=== PATIENT | male | born 1945 | race African-American/Black ===

== ENCOUNTER 2019-06-06 06:55 | Inpatient (IN) ==
[2019-06-06] MEDS ORDERED: DILTIAZEM 50 MG/10 ML VIAL IV STA (07:12)
[2019-06-06] MEDS ORDERED: FUROSEMIDE 40 MG/4 ML VIAL IV STA (07:12)
[2019-06-06] MEDS ORDERED: FUROSEMIDE 100 MG/10 ML VIAL ONE (07:12)
[2019-06-06] MEDS ORDERED: DILTIAZEM 25 MG/5 ML VIAL IV ONE (07:13)
[2019-06-06] MEDS ORDERED: MORPHINE 4 MG/1 ML VIAL ONE (07:17)
[2019-06-06 07:26] LABS: Basophils # 0.1 10*3/uL (0.0-0.2); Basophils % 0.7 % (0.0-0.8); Eosinophils # 0.2 10*3/uL (0.0-0.87); Eosinophils % 1.9 % (0.00-10.9); Hematocrit 52.6 VOL% (42.0-52.0); Hemoglobin 17.2 GM/DL (14.0-18.0); Immature Granulocytes % 0.3 %; Immature Granulocytes Absolute 0.04 #; Lymphocytes # 3.2 10*3/uL (1.4-4.0); Lymphocytes % 25.9 % (21.2-54.2); Mean Corpuscular HGB Conc 32.7 GM/DL (32-36); Mean Corpuscular Volume 97.4 FL (87-102); Mean Platelet Volume 11.1 FL (9.6-12.0); Monocytes % 5.1 % (1.7-12.7); Neutrophils % 66.1 % (38.7-73.9); Platelet Count 167 T/CUMM (130-400); Red Cell Distribution Width 14.6 % (9.3-17.3); White Blood Count 12.5 T/CUMM (4-12)
[2019-06-06] MEDS ORDERED: ALBUTEROL 2.5 MG/3 ML NEB RESP TX SCH (07:30)
[2019-06-06] MEDS ORDERED: dilTIAZem Drip 125 MG/125 ML PREMIX IV SCH (07:30)
[2019-06-06 07:34] LABS: ABG Base Excess -4.5 MMOL/L (-2.5-2.5); ABG HCO3 22.1 MMOL/L (20-26); ABG Oxygen Saturation 97.1 % (95-100); ABG PCO2 46.1 MM HG (35-48); ABG PH 7.299 (7.35-7.45); ABG PO2 108.9 MM HG (80-95); ABG TCO2 23.5 MMOL/L (23-27)
[2019-06-06] MEDS ORDERED: MORPHINE 4 MG/1 ML VIAL IV STA (07:48)
[2019-06-06 07:55] LABS: Albumin 3.9 G/DL (3.4-5.0); Calcium 9.2 MG/DL (8.5-10.1); Osmolality,Calculated 283.3 MOS/KG (273-304); Total Protein 7.6 G/DL (6.4-8.3)
[2019-06-06 08:02] LABS: Apearance,Urine Cloudy (Clear); Bilirubin,Urine Negative (Negative); Blood, Urine Large mg/dL (Negative); Glucose,Urine (UA) Negative (Negative); Ketones,Urine Negative (Negative); Nitrite,Urine Negative (Negative); Protein,Urine 2+ MG/DL; Urine Color Red (Yellow); Urine Specific Gravity 1.015 (1.001-1.035); Urine Urobilinogen < 0.2 EU/DL (0.2-1.0)
[2019-06-06 08:07] LABS: Bacteria,Urine Rare /HPF (Few); RBC,Urine TNTC /HPF (0-4); Squamous Epithelial Cell,Urine Few /HPF (0-10)
[2019-06-06] MEDS ORDERED: guaiFENesin/DM ER 600-30 MG TABLET PO PRN (09:10)
[2019-06-06] MEDS ORDERED: ACETAMINOPHEN 325 MG TABLET PO PRN (09:10)
[2019-06-06] MEDS ORDERED: NICOTINE 21 MG/24 HR PATCH TRANSDERM PRN (09:10)
[2019-06-06] MEDS ORDERED: BISACODYL 5 MG TABLET PO PRN (09:10)
[2019-06-06] MEDS ORDERED: ONDANSETRON 4 MG/2 ML VIAL IV PRN (09:10)
[2019-06-06 09:49] LABS: Risk Ratio 3.18; Thyroid Stimulating Hormone 1.29 uIU/ml (0.358-3.74); VLDL CHOLESTEROL 18.4 MG/DL
[2019-06-06] MEDS: LEVOFLOXACIN INJ 750 MG in PREMIX 1 EACH IV SCH (11:11)
[2019-06-06] MEDS: METOPROLOL TARTRATE 50 MG TABLET PO SCH ×2 (11:11→20:07)
[2019-06-06] MEDS: LISINOPRIL 20 MG TABLET PO SCH (15:18)
[2019-06-06] MEDS: FUROSEMIDE 40 MG/4 ML VIAL IV SCH (15:18)
[2019-06-06] MEDS ORDERED: CYCLOBENZAPRINE 10 MG TABLET PO ONE (19:45)
[2019-06-06] MEDS: APIXABAN 5 MG TABLET PO SCH (20:07)
[2019-06-07 05:25] LABS: Basophils % 0.3 % (0.0-0.8); Eosinophils # 0.1 10*3/uL (0.0-0.87); Eosinophils % 0.6 % (0.00-10.9); Hematocrit 45.9 VOL% (42.0-52.0); Hemoglobin 15.5 GM/DL (14.0-18.0); Immature Granulocytes % 0.4 %; Immature Granulocytes Absolute 0.05 #; Lymphocytes # 1.3 10*3/uL (1.4-4.0); Lymphocytes % 10.7 % (21.2-54.2); Mean Corpuscular HGB Conc 33.8 GM/DL (32-36); Mean Corpuscular Volume 93.9 FL (87-102); Mean Platelet Volume 11.2 FL (9.6-12.0); Monocytes % 8.1 % (1.7-12.7); Neutrophils % 79.9 % (38.7-73.9); Platelet Count 146 T/CUMM (130-400); Red Blood Count 4.89 MC/CUMM (3.8-5.5); Red Cell Distribution Width 14.2 % (9.3-17.3); White Blood Count 11.6 T/CUMM (4-12)
[2019-06-07 06:14] LABS: Calcium 8.9 MG/DL (8.5-10.1); Osmolality,Calculated 302.7 MOS/KG (273-304)
[2019-06-07] MEDS: APIXABAN 5 MG TABLET PO SCH (08:59)
[2019-06-07] MEDS: FUROSEMIDE 40 MG/4 ML VIAL IV SCH (08:59)
[2019-06-07] MEDS: LISINOPRIL 20 MG TABLET PO SCH (08:59)
[2019-06-07] MEDS: METOPROLOL TARTRATE 50 MG TABLET PO SCH (08:59)
[2019-06-07] MEDS ORDERED: ATORVASTATIN 80 MG TABLET PO SCH (09:00)
[2019-06-07] MEDS ORDERED: PANTOPRAZOLE 40 MG TABLET PO SCH (09:00)
[2019-06-07] MEDS ORDERED: ATORVASTATIN 40 MG TABLET PO SCH (09:00)
[2019-06-07] MEDS: LEVOFLOXACIN INJ 750 MG in PREMIX 1 EACH IV SCH (11:00)
[2019-06-07] MEDS ORDERED: DEXTROSE 5% 1,000 ML IV SCH (11:30)
[2019-06-07 12:14] VITALS: BP 143/76
== END 2019-06-07 14:15 | disposition home or self-care (01) | DRG 871 ==
LOC: N.ED 06:55 → N.EDINP 09:10 → N.TELEN 14:17
PROVIDERS: ADMIT Internal Medicine; ATTEND Internal Medicine

== ENCOUNTER 2020-11-19 07:02 | Inpatient (IN) ==
[2020-11-13 12:03] LABS: Basophils # 0.1 10*3/uL (0.0-0.2); Basophils % 0.7 % (0.0-0.8); Eosinophils # 0.5 10*3/uL (0.0-0.87); Eosinophils % 6.6 % (0.00-10.9); Hematocrit 47.1 VOL% (42.0-52.0); Hemoglobin 15.4 GM/DL (14.0-18.0); Immature Granulocytes % 0.3 %; Immature Granulocytes Absolute 0.02 #; Lymphocytes # 1.5 10*3/uL (1.4-4.0); Lymphocytes % 21.5 % (21.2-54.2); Mean Corpuscular HGB Conc 32.7 GM/DL (32-36); Mean Corpuscular Volume 99.2 FL (87-102); Mean Platelet Volume 11.2 FL (9.6-12.0); Monocytes % 9.7 % (1.7-12.7); Neutrophils % 61.2 % (38.7-73.9); Platelet Count 155 T/CUMM (130-400); Red Blood Count 4.75 MC/CUMM (3.8-5.5); Red Cell Distribution Width 15.1 % (9.3-17.3)
[2020-11-13 12:14] LABS: PT Patient Result 11.1 SECS (10.5-12.0); Partial Thromboplastin Time 30.2 SECS (23.9-33.8)
[2020-11-13 12:35] LABS: Albumin 3.7 G/DL (3.4-5.0); Bilirubin,Total 0.6 MG/DL (0.2-1.0); Calcium 8.8 MG/DL (8.5-10.1); Total Protein 7.1 G/DL (6.4-8.2)
[~2020-11-19 07:02] MED LIST: ACETAMINOPHEN 500 MG TABLET PO ONE; DIAZEPAM 5 MG TABLET PO ONE; FAMOTIDINE 20 MG TABLET PO ONE
[2020-11-19] MEDS ORDERED: LACTATED RINGERS 1,000 ML IV SCH (07:30)
[2020-11-19] MEDS ORDERED: fentaNYL 100 MCG/2 ML VIAL ONE ×2 (08:14→10:28)
[2020-11-19] MEDS ORDERED: HEPARIN 5,000 UNIT/1 ML VIAL ONE ×2 (08:40→08:42)
[2020-11-19] MEDS ORDERED: ROCURONIUM 50 MG/5 ML VIAL IV ONE (08:54)
[2020-11-19] MEDS ORDERED: LIDOCAINE 2% 5 ML VIAL ONE (08:54)
[2020-11-19] MEDS ORDERED: ONDANSETRON 4 MG/2 ML VIAL ONE (08:54)
[2020-11-19] MEDS ORDERED: HEPARIN 10,000 UNIT/10 ML VIAL ONE (08:54)
[2020-11-19] MEDS ORDERED: KETOROLAC 30 MG/1 ML VIAL ONE (08:54)
[2020-11-19] MEDS ORDERED: ETOMIDATE 40 MG/20 ML VIAL IV ONE (08:54)
[2020-11-19] MEDS ORDERED: propofoL 200 MG/20 ML VIAL IV ONE (08:54)
[2020-11-19] MEDS ORDERED: PHENYLEPHRINE 1 MG/10 ML SYRINGE IV ONE (09:31)
[2020-11-19] MEDS ORDERED: TISSUE ADHESIVE 1 EACH APPLICATOR TOP ONE ×2 (10:06→10:07)
[2020-11-19] MEDS ORDERED: GLYCOPYRROLATE 0.4 MG/2 ML VIAL ONE (10:10)
[2020-11-19] MEDS ORDERED: NEOSTIGMINE 10 MG/10 ML VIAL ONE (10:10)
[2020-11-19] MEDS ORDERED: PROTAMINE SULFATE 50 MG/5 ML VIAL IV ONE (10:18)
[2020-11-19] MEDS ORDERED: HYDROmorphone 2 MG/1 ML VIAL IV PRN ×2 (10:38→11:13)
[2020-11-19] MEDS ORDERED: ONDANSETRON 4 MG/2 ML VIAL IV PRN ×2 (10:38→11:13)
[2020-11-19] MEDS ORDERED: NITROGLYCERIN SL 0.4 MG TABLET SL PRN (10:42)
[2020-11-19] MEDS ORDERED: SEVOFLURANE 1 UNIT/15 MINUTE INH ONE (10:45)
[2020-11-19] MEDS ORDERED: ATORVASTATIN 40 MG TABLET PO SCH (21:00)
[2020-11-19] MEDS: LACTATED RINGERS 1,000 ML IV SCH ×2 (21:48→21:59)
[2020-11-19] MEDS: SACUBITRIL/VALSARTAN 49-51 MG TABLET PO SCH (21:59)
[2020-11-19] MEDS: PANTOPRAZOLE 40 MG TABLET PO SCH (21:59)
[2020-11-19] MEDS: clonazePAM 0.5 MG TABLET PO SCH (21:59)
[2020-11-19] MEDS: METOPROLOL TARTRATE 100 MG TABLET PO SCH (21:59)
[2020-11-20 06:07] LABS: Hematocrit 40.4 VOL% (42.0-52.0); Hemoglobin 13.2 GM/DL (14.0-18.0)
[2020-11-20 06:44] LABS: Calcium 8.4 MG/DL (8.5-10.1); Osmolality,Calculated 283.1 MOS/KG (273-304)
[2020-11-20] MEDS: LACTATED RINGERS 1,000 ML IV SCH ×2 (07:37→11:03)
[2020-11-20 08:20] VITALS: BP 180/69
[2020-11-20] MEDS: METOPROLOL TARTRATE 100 MG TABLET PO SCH (08:52)
[2020-11-20] MEDS: PANTOPRAZOLE 40 MG TABLET PO SCH (08:52)
[2020-11-20] MEDS: SACUBITRIL/VALSARTAN 49-51 MG TABLET PO SCH (08:53)
[2020-11-20] MEDS: clonazePAM 0.5 MG TABLET PO SCH (08:53)
[2020-11-20] MEDS ORDERED: CYANOCOBALAMIN 500 MCG TABLET PO SCH (09:00)
[2020-11-20] MEDS ORDERED: ASPIRIN CHEW 81 MG TABLET PO SCH (09:00)
[2020-11-20] MEDS ORDERED: FUROSEMIDE 20 MG TABLET PO SCH (09:00)
[2020-11-20] MEDS ORDERED: CLOPIDOGREL 75 MG TABLET PO SCH ×2 (09:00)
== END 2020-11-20 11:25 | disposition home or self-care (01) | DRG 254 ==
LOC: N.OR 07:02 → N.SDSINP 07:04 → EDSTATUS 09:15 → N.SDSINP 10:38 → N.4E 13:13
PROVIDERS: ADMIT Surgery; ATTEND Surgery

== ENCOUNTER 2020-12-04 07:01 | Inpatient (IN) ==
[2020-12-04] MEDS ORDERED: ONDANSETRON 4 MG/2 ML VIAL IV STA (08:24)
[2020-12-04] MEDS ORDERED: MORPHINE 4 MG/1 ML VIAL IV STA (08:24)
[2020-12-04 08:26] LABS: Basophils % 0.2 % (0.0-0.8); Eosinophils # 0.1 10*3/uL (0.0-0.87); Eosinophils % 0.6 % (0.00-10.9); Hematocrit 38.6 VOL% (42.0-52.0); Hemoglobin 12.5 GM/DL (14.0-18.0); Immature Granulocytes % 0.6 %; Immature Granulocytes Absolute 0.06 #; Lymphocytes # 1.2 10*3/uL (1.4-4.0); Mean Corpuscular HGB Conc 32.4 GM/DL (32-36); Mean Corpuscular Volume 98.7 FL (87-102); Mean Platelet Volume 10.8 FL (9.6-12.0); Neutrophils % 80.6 % (38.7-73.9); Platelet Count 203 T/CUMM (130-400); Red Blood Count 3.91 MC/CUMM (3.8-5.5); Red Cell Distribution Width 14.6 % (9.3-17.3); White Blood Count 10.7 T/CUMM (4-12)
[2020-12-04] MEDS ORDERED: LIDOCAINE 2% TOP JELLY 20 ML VIAL INTRAURETH ONE (08:35)
[2020-12-04 08:38] LABS: Calcium 9.1 MG/DL (8.5-10.1); Osmolality,Calculated 284.4 MOS/KG (273-304); Potassium 4.5 MMOL/L (3.5-5.1)
[2020-12-04] MEDS ORDERED: HYDROmorphone 2 MG/1 ML VIAL ONE (08:43)
[2020-12-04] MEDS ORDERED: HYDROmorphone 2 MG/1 ML VIAL IV STA (08:45)
[2020-12-04] MEDS ORDERED: LIDOCAINE 2% TOP JELLY 5 ML TUBE TOP ONE (08:50)
[2020-12-04] MEDS ORDERED: GLUCAGON 1 MG VIAL IM PRN (10:19)
[2020-12-04] MEDS ORDERED: DEXTROSE 50% 25 GM/50 ML VIAL IV PRN (10:19)
[2020-12-04] MEDS ORDERED: DOCUSATE SODIUM 100 MG CAPSULE PO PRN (10:19)
[2020-12-04] MEDS ORDERED: ALBUTEROL/IPRATROPIUM 3 ML NEB RESP TX PRN (10:19)
[2020-12-04] MEDS ORDERED: ONDANSETRON 4 MG/2 ML VIAL IV PRN (10:19)
[2020-12-04] MEDS: SODIUM CHLORIDE 0.9% 1,000 ML IV SCH (11:24)
[2020-12-04] MEDS ORDERED: NITROGLYCERIN SL 0.4 MG TABLET SL PRN (12:54)
[2020-12-04] MEDS: MORPHINE 4 MG/1 ML VIAL IV PRN ×2 (13:34→17:27)
[2020-12-04] MEDS: hydrALAZINE 20 MG/1 ML VIAL IV PRN ×2 (13:34→20:41)
[2020-12-04 15:24] LABS: Bacteria,Urine Many /HPF (Few); Bilirubin,Urine Negative (Negative); Blood, Urine Moderate mg/dL (Negative); Glucose,Urine (UA) 50 mg/dL (Negative); Ketones,Urine Negative (Negative); Nitrite,Urine Negative (Negative); Protein,Urine >=500 MG/DL; RBC,Urine 623 /HPF (0-4); Urine Appearance Slightly Hazy (Clear); Urine Color Red (Yellow); Urine Specific Gravity 1.004 (1.001-1.035); Urine Urobilinogen < 2.0 EU/DL (0.2-1.0)
[2020-12-04] MEDS ORDERED: SACUBITRIL/VALSARTAN 49-51 MG TABLET PO SCH (21:00)
[2020-12-05] MEDS: SODIUM CHLORIDE 0.9% 1,000 ML IV SCH ×2 (05:15→20:30)
[2020-12-05 06:15] LABS: Basophils % 0.3 % (0.0-0.8); Eosinophils % 0.2 % (0.00-10.9); Hematocrit 30.7 VOL% (42.0-52.0); Immature Granulocytes % 0.6 %; Immature Granulocytes Absolute 0.09 #; Lymphocytes % 6.5 % (21.2-54.2); Mean Corpuscular HGB Conc 33.2 GM/DL (32-36); Mean Corpuscular Volume 98.1 FL (87-102); Mean Platelet Volume 11.7 FL (9.6-12.0); Monocytes % 8.7 % (1.7-12.7); Neutrophils % 83.7 % (38.7-73.9); Platelet Count 181 T/CUMM (130-400); Red Blood Count 3.13 MC/CUMM (3.8-5.5); Red Cell Distribution Width 14.6 % (9.3-17.3)
[2020-12-05 06:23] LABS: Hemoglobin 10.2 GM/DL (14.0-18.0); White Blood Count 14.8 T/CUMM (4-12)
[2020-12-05 06:24] LABS: Calcium 8.7 MG/DL (8.5-10.1); Osmolality,Calculated 288.3 MOS/KG (273-304); Potassium 4.1 MMOL/L (3.5-5.1); Risk Ratio 2.83
[2020-12-05 08:41] LABS: Alanine Aminotransferase 13 U/L (16-61); Aspartate Amino Transferase 36 U/L (0-37)
[2020-12-05] MEDS ORDERED: CYANOCOBALAMIN 500 MCG TABLET PO SCH (09:00)
[2020-12-05] MEDS: cefTRIAXone 1,000 MG in SODIUM CHLORIDE 0.9% 100 ML IV SCH (09:55)
[2020-12-05] MEDS: MORPHINE 4 MG/1 ML VIAL IV PRN ×2 (09:55→17:11)
[2020-12-05 13:08] LABS: Bacteria,Urine Occasional /HPF (Few); RBC,Urine 32755 /HPF (0-4); Sperm,Urine Occasional /HPF (Negative); Squamous Epithelial Cell,Urine Few /HPF (0-10)
[2020-12-05 13:16] LABS: Protein,Urine >500 MG/DL; Urine Appearance Cloudy (Clear); Urine Color Red (Yellow)
[2020-12-05 13:17] LABS: Bilirubin,Urine Negative (Negative); Glucose,Urine (UA) Negative (Negative); Ketones,Urine Negative (Negative); Nitrite,Urine Negative (Negative)
[2020-12-05 13:18] LABS: Blood, Urine Large mg/dL (Negative); Urine Urobilinogen < 2.0 EU/DL (0.2-1.0)
[2020-12-05 14:37] LABS: Hematocrit 30.6 VOL% (42.0-52.0)
[2020-12-05] MEDS: ATORVASTATIN 40 MG TABLET PO SCH (20:49)
[2020-12-05] MEDS: METOPROLOL TARTRATE 100 MG TABLET PO SCH (20:49)
[2020-12-06] MEDS: MORPHINE 4 MG/1 ML VIAL IV PRN ×2 (03:15→15:38)
[2020-12-06 03:48] LABS: Basophils % 0.3 % (0.0-0.8); Eosinophils # 0.3 10*3/uL (0.0-0.87); Eosinophils % 1.9 % (0.00-10.9); Hemoglobin 9.7 GM/DL (14.0-18.0); Immature Granulocytes % 0.6 %; Immature Granulocytes Absolute 0.09 #; Lymphocytes # 0.9 10*3/uL (1.4-4.0); Lymphocytes % 6.8 % (21.2-54.2); Mean Corpuscular HGB Conc 33.4 GM/DL (32-36); Mean Corpuscular Volume 97.3 FL (87-102); Mean Platelet Volume 11.3 FL (9.6-12.0); Monocytes % 6.8 % (1.7-12.7); Neutrophils % 83.6 % (38.7-73.9); Platelet Count 175 T/CUMM (130-400); Red Blood Count 2.98 MC/CUMM (3.8-5.5); Red Cell Distribution Width 14.6 % (9.3-17.3); White Blood Count 13.9 T/CUMM (4-12)
[2020-12-06 04:09] LABS: Calcium 8.5 MG/DL (8.5-10.1); Osmolality,Calculated 285.3 MOS/KG (273-304); Potassium 4.3 MMOL/L (3.5-5.1)
[2020-12-06] MEDS ORDERED: LIDOCAINE 2% 5 ML VIAL ONE (07:00)
[2020-12-06] MEDS ORDERED: fentaNYL 100 MCG/2 ML VIAL ONE (07:00)
[2020-12-06] MEDS ORDERED: propofoL 200 MG/20 ML VIAL IV ONE (07:00)
[2020-12-06] MEDS ORDERED: SEVOFLURANE 1 UNIT/15 MINUTE INH ONE ×4 (07:00→08:57)
[2020-12-06] MEDS: SODIUM CHLORIDE 0.9% 1,000 ML IV SCH (07:07)
[2020-12-06] MEDS ORDERED: SUCCINYLCHOLINE 200 MG/10 ML VIAL ONE (08:22)
[2020-12-06] MEDS ORDERED: cefTRIAXone 1,000 MG VIAL ONE (08:54)
[2020-12-06] MEDS ORDERED: SODIUM CHLORIDE 0.9% 1,000 ML IV ONE (09:03)
[2020-12-06] MEDS ORDERED: ONDANSETRON 4 MG/2 ML VIAL ONE ×2 (09:05→09:39)
[2020-12-06] MEDS: cefTRIAXone 1,000 MG in SODIUM CHLORIDE 0.9% 100 ML IV SCH (11:14)
[2020-12-06] MEDS: ASPIRIN CHEW 81 MG TABLET PO SCH (11:14)
[2020-12-06] MEDS: METOPROLOL TARTRATE 100 MG TABLET PO SCH ×2 (11:15→21:17)
[2020-12-06] MEDS: FLUTICASONE 50 MCG NASAL SPRAY 16 GM BOTTLE BOTH NARES SCH (11:15)
[2020-12-06] MEDS: amLODIPine 5 MG TABLET PO SCH (11:16)
[2020-12-06] MEDS: DOCUSATE SODIUM 100 MG CAPSULE PO SCH ×2 (14:03→21:17)
[2020-12-06] MEDS: POLYETHYLENE GLYCOL POWDER 17 GM PACK PO SCH ×2 (14:04→21:17)
[2020-12-06] MEDS ORDERED: ALUMINUM/MAGNES/SIMETH MAX STR 30 ML UDCUP PO PRN (16:50)
[2020-12-06] MEDS: ATORVASTATIN 40 MG TABLET PO SCH (21:17)
[2020-12-06] MEDS: SENNA 8.6 MG TABLET PO SCH (21:17)
[2020-12-06] MEDS: OXYBUTYNIN 5 MG TABLET PO SCH (21:17)
[2020-12-07] MEDS: SODIUM CHLORIDE 0.9% 1,000 ML IV SCH ×2 (02:17→15:50)
[2020-12-07 04:52] LABS: Basophils % 0.3 % (0.0-0.8); Eosinophils # 0.4 10*3/uL (0.0-0.87); Eosinophils % 3.8 % (0.00-10.9); Hematocrit 27.6 VOL% (42.0-52.0); Hemoglobin 9.2 GM/DL (14.0-18.0); Immature Granulocytes % 0.4 %; Immature Granulocytes Absolute 0.04 #; Lymphocytes # 0.9 10*3/uL (1.4-4.0); Lymphocytes % 9.6 % (21.2-54.2); Mean Corpuscular HGB Conc 33.3 GM/DL (32-36); Mean Corpuscular Volume 97.9 FL (87-102); Mean Platelet Volume 11.6 FL (9.6-12.0); Monocytes % 8.3 % (1.7-12.7); Neutrophils % 77.6 % (38.7-73.9); Platelet Count 193 T/CUMM (130-400); Red Blood Count 2.82 MC/CUMM (3.8-5.5); Red Cell Distribution Width 14.6 % (9.3-17.3); White Blood Count 9.7 T/CUMM (4-12)
[2020-12-07 05:14] LABS: Calcium 8.3 MG/DL (8.5-10.1); Osmolality,Calculated 287.1 MOS/KG (273-304); Potassium 4.3 MMOL/L (3.5-5.1)
[2020-12-07] MEDS: ASPIRIN CHEW 81 MG TABLET PO SCH (09:41)
[2020-12-07] MEDS: LINACLOTIDE 145 MCG CAPSULE PO SCH (09:41)
[2020-12-07] MEDS: OXYBUTYNIN 5 MG TABLET PO SCH ×3 (09:42→21:47)
[2020-12-07] MEDS: METOPROLOL TARTRATE 100 MG TABLET PO SCH ×2 (09:42→21:47)
[2020-12-07] MEDS: amLODIPine 5 MG TABLET PO SCH (09:42)
[2020-12-07] MEDS: DOCUSATE SODIUM 100 MG CAPSULE PO SCH ×2 (09:42→21:47)
[2020-12-07] MEDS: FLUTICASONE 50 MCG NASAL SPRAY 16 GM BOTTLE BOTH NARES SCH (09:43)
[2020-12-07] MEDS: POLYETHYLENE GLYCOL POWDER 17 GM PACK PO SCH ×2 (09:43→21:47)
[2020-12-07] MEDS: DUTASTERIDE 0.5 MG CAPSULE PO SCH (09:44)
[2020-12-07] MEDS: cefTRIAXone 1,000 MG in SODIUM CHLORIDE 0.9% 100 ML IV SCH (09:51)
[2020-12-07] MEDS ORDERED: traMADol 50 MG TABLET PO PRN (11:18)
[2020-12-07] MEDS: TAMSULOSIN 0.4 MG CAPSULE PO SCH ×2 (11:55→21:47)
[2020-12-07] MEDS: SENNA 8.6 MG TABLET PO SCH (21:47)
[2020-12-07] MEDS: ATORVASTATIN 40 MG TABLET PO SCH (21:47)
[2020-12-08] MEDS ORDERED: HALOPERIDOL 5 MG/ML AMP IM ONE (01:27)
[2020-12-08 07:52] LABS: Basophils % 0.3 % (0.0-0.8); Eosinophils # 0.1 10*3/uL (0.0-0.87); Eosinophils % 1.5 % (0.00-10.9); Hematocrit 27.2 VOL% (42.0-52.0); Hemoglobin 8.8 GM/DL (14.0-18.0); Immature Granulocytes % 0.8 %; Immature Granulocytes Absolute 0.07 #; Lymphocytes # 0.7 10*3/uL (1.4-4.0); Lymphocytes % 7.8 % (21.2-54.2); Mean Corpuscular HGB Conc 32.4 GM/DL (32-36); Mean Corpuscular Volume 98.6 FL (87-102); Mean Platelet Volume 11.3 FL (9.6-12.0); Monocytes % 9.6 % (1.7-12.7); Platelet Count 214 T/CUMM (130-400); Red Blood Count 2.76 MC/CUMM (3.8-5.5); Red Cell Distribution Width 14.5 % (9.3-17.3); White Blood Count 9.2 T/CUMM (4-12)
[2020-12-08 08:07] LABS: Calcium 8.5 MG/DL (8.5-10.1)
[2020-12-08] MEDS: cefTRIAXone 1,000 MG in SODIUM CHLORIDE 0.9% 100 ML IV SCH (09:10)
[2020-12-08] MEDS: DUTASTERIDE 0.5 MG CAPSULE PO SCH (09:12)
[2020-12-08] MEDS: ASPIRIN CHEW 81 MG TABLET PO SCH (09:12)
[2020-12-08] MEDS: amLODIPine 5 MG TABLET PO SCH (09:13)
[2020-12-08] MEDS: TAMSULOSIN 0.4 MG CAPSULE PO SCH ×2 (09:13→20:39)
[2020-12-08] MEDS: METOPROLOL TARTRATE 100 MG TABLET PO SCH ×2 (09:13→20:39)
[2020-12-08] MEDS: OXYBUTYNIN 5 MG TABLET PO SCH (09:13)
[2020-12-08] MEDS: LINACLOTIDE 145 MCG CAPSULE PO SCH (09:31)
[2020-12-08] MEDS: POLYETHYLENE GLYCOL POWDER 17 GM PACK PO SCH ×2 (09:31→20:40)
[2020-12-08] MEDS: DOCUSATE SODIUM 100 MG CAPSULE PO SCH ×2 (09:31→20:39)
[2020-12-08] MEDS: FLUTICASONE 50 MCG NASAL SPRAY 16 GM BOTTLE BOTH NARES SCH (09:31)
[2020-12-08] MEDS: OLANZapine 5 MG TABLET PO PRN ×2 (14:01→20:38)
[2020-12-08] MEDS: ATORVASTATIN 40 MG TABLET PO SCH (20:39)
[2020-12-08] MEDS: SENNA 8.6 MG TABLET PO SCH (20:40)
[2020-12-08] MEDS ORDERED: ACETAMINOPHEN 325 MG TABLET PO PRN (22:55)
[2020-12-08] MEDS ORDERED: LORazepam 2 MG/1 ML VIAL IV ONE (22:56)
[2020-12-08] MEDS ORDERED: LORazepam 2 MG/1 ML VIAL IM ONE (23:43)
[2020-12-09 00:11] LABS: Basophils % 0.3 % (0.0-0.8); Eosinophils # 0.1 10*3/uL (0.0-0.87); Eosinophils % 0.7 % (0.00-10.9); Hematocrit 33.8 VOL% (42.0-52.0); Hemoglobin 10.7 GM/DL (14.0-18.0); Immature Granulocytes % 0.6 %; Immature Granulocytes Absolute 0.07 #; Lymphocytes # 0.8 10*3/uL (1.4-4.0); Lymphocytes % 6.9 % (21.2-54.2); Mean Corpuscular HGB Conc 31.7 GM/DL (32-36); Mean Corpuscular Volume 102.4 FL (87-102); Mean Platelet Volume 10.9 FL (9.6-12.0); Monocytes % 9.6 % (1.7-12.7); NRBC # 0.02 10*3/uL; Neutrophils % 81.9 % (38.7-73.9); Platelet Count 183 T/CUMM (130-400); Red Cell Distribution Width 14.5 % (9.3-17.3); White Blood Count 10.9 T/CUMM (4-12)
[2020-12-09 00:46] LABS: Albumin 2.4 G/DL (3.4-5.0); Bilirubin,Total 0.7 MG/DL (0.2-1.0); Calcium 8.7 MG/DL (8.5-10.1); Osmolality,Calculated 282.5 MOS/KG (273-304); Potassium 4.3 MMOL/L (3.5-5.1); Total Protein 6.5 G/DL (6.4-8.2)
[2020-12-09 01:18] LABS: ABG Base Excess -2.9 MMOL/L (-2.5-2.5); ABG HCO3 21.9 MMOL/L (20-26); ABG Oxygen Saturation 96.3 % (95-100); ABG PCO2 28.7 MM HG (35-48); ABG PH 7.454 (7.35-7.45); ABG PO2 82.6 MM HG (80-95); ABG TCO2 18.5 MMOL/L (23-27)
[2020-12-09] MEDS ORDERED: LORazepam 2 MG/1 ML VIAL IM ONE (01:28)
[2020-12-09 01:35] LABS: Bacteria,Urine Occasional /HPF (Few); Bilirubin,Urine Negative (Negative); Blood, Urine Large mg/dL (Negative); Glucose,Urine (UA) 50 mg/dL (Negative); Hyaline Casts,Urine 3 /LPF (0-3); Ketones,Urine Negative (Negative); Mucus,Urine Few /LPF (Occasional); Nitrite,Urine Negative (Negative); Protein,Urine >=500 MG/DL; RBC,Urine 592 /HPF (0-4); Squamous Epithelial Cell,Urine Occasional /HPF (0-10); Urine Appearance Slightly Hazy (Clear); Urine Color Amber (Yellow); Urine Specific Gravity 1.024 (1.001-1.035)
[2020-12-09 06:49] LABS: Basophils % 0.2 % (0.0-0.8); Eosinophils # 0.1 10*3/uL (0.0-0.87); Eosinophils % 1.2 % (0.00-10.9); Hematocrit 26.6 VOL% (42.0-52.0); Hemoglobin 8.9 GM/DL (14.0-18.0); Immature Granulocytes % 1.5 %; Immature Granulocytes Absolute 0.16 #; Lymphocytes # 1.1 10*3/uL (1.4-4.0); Mean Corpuscular HGB Conc 33.5 GM/DL (32-36); Mean Corpuscular Volume 98.5 FL (87-102); Mean Platelet Volume 11.4 FL (9.6-12.0); Monocytes % 13.3 % (1.7-12.7); NRBC # 0.02 10*3/uL; Neutrophils % 72.8 % (38.7-73.9); Platelet Count 227 T/CUMM (130-400); Red Cell Distribution Width 14.5 % (9.3-17.3); White Blood Count 10.3 T/CUMM (4-12)
[2020-12-09 07:06] LABS: Calcium 8.6 MG/DL (8.5-10.1); Osmolality,Calculated 288.1 MOS/KG (273-304); Potassium 4.4 MMOL/L (3.5-5.1)
[2020-12-09 07:10] LABS: Eosinophils 3 % (0-10); Hypochromasia 1+; Lymphocytes 13 % (20-55); Microcytosis 1+; Platelet Estimate Adequate; Segmented Neutrophils 78 % (50-85); Total Cells Counted 100
[2020-12-09] MEDS: LINACLOTIDE 145 MCG CAPSULE PO SCH (10:33)
[2020-12-09] MEDS: cefTRIAXone 1,000 MG VIAL IM SCH (10:33)
[2020-12-09] MEDS: DOCUSATE SODIUM 100 MG CAPSULE PO SCH ×2 (10:34→21:10)
[2020-12-09] MEDS: FLUTICASONE 50 MCG NASAL SPRAY 16 GM BOTTLE BOTH NARES SCH (10:34)
[2020-12-09] MEDS: DUTASTERIDE 0.5 MG CAPSULE PO SCH (10:34)
[2020-12-09] MEDS: METOPROLOL TARTRATE 100 MG TABLET PO SCH ×2 (10:34→21:10)
[2020-12-09] MEDS: ASPIRIN CHEW 81 MG TABLET PO SCH (10:34)
[2020-12-09] MEDS: TAMSULOSIN 0.4 MG CAPSULE PO SCH ×2 (10:34→21:12)
[2020-12-09] MEDS: POLYETHYLENE GLYCOL POWDER 17 GM PACK PO SCH ×2 (10:35→21:10)
[2020-12-09] MEDS: amLODIPine 5 MG TABLET PO SCH (10:35)
[2020-12-09] MEDS: SODIUM CHLORIDE 0.9% 1,000 ML IV SCH ×2 (10:48→15:28)
[2020-12-09] MEDS: hydrALAZINE 20 MG/1 ML VIAL IV SCH ×2 (15:26→17:28)
[2020-12-09] MEDS: METOPROLOL TARTRATE 5 MG/5 ML VIAL IV SCH ×2 (15:27→17:28)
[2020-12-09] MEDS: ATORVASTATIN 40 MG TABLET PO SCH (21:10)
[2020-12-09] MEDS: SENNA 8.6 MG TABLET PO SCH (21:11)
[2020-12-10] MEDS: METOPROLOL TARTRATE 5 MG/5 ML VIAL IV SCH ×2 (02:08→05:32)
[2020-12-10] MEDS: hydrALAZINE 20 MG/1 ML VIAL IV SCH ×2 (02:08→05:32)
[2020-12-10 05:14] LABS: Basophils % 0.4 % (0.0-0.8); Eosinophils # 0.1 10*3/uL (0.0-0.87); Eosinophils % 0.6 % (0.00-10.9); Hematocrit 26.2 VOL% (42.0-52.0); Hemoglobin 8.6 GM/DL (14.0-18.0); Immature Granulocytes % 0.7 %; Immature Granulocytes Absolute 0.07 #; Lymphocytes % 9.6 % (21.2-54.2); Mean Corpuscular HGB Conc 32.8 GM/DL (32-36); Mean Corpuscular Volume 99.2 FL (87-102); Mean Platelet Volume 10.9 FL (9.6-12.0); Monocytes % 12.6 % (1.7-12.7); NRBC # 0.05 10*3/uL; Neutrophils % 76.1 % (38.7-73.9); Platelet Count 224 T/CUMM (130-400); Red Blood Count 2.64 MC/CUMM (3.8-5.5); Red Cell Distribution Width 14.9 % (9.3-17.3); White Blood Count 10.4 T/CUMM (4-12)
[2020-12-10] MEDS: SODIUM CHLORIDE 0.9% 1,000 ML IV SCH ×2 (05:32→13:55)
[2020-12-10 05:45] LABS: Calcium 8.5 MG/DL (8.5-10.1); Osmolality,Calculated 290.8 MOS/KG (273-304); Potassium 4.3 MMOL/L (3.5-5.1)
[2020-12-10] MEDS: amLODIPine 5 MG TABLET PO SCH (09:58)
[2020-12-10] MEDS: FLUTICASONE 50 MCG NASAL SPRAY 16 GM BOTTLE BOTH NARES SCH (09:58)
[2020-12-10] MEDS: cefTRIAXone 1,000 MG VIAL IM SCH (09:58)
[2020-12-10] MEDS: TAMSULOSIN 0.4 MG CAPSULE PO SCH ×2 (09:58→20:54)
[2020-12-10] MEDS: DOCUSATE SODIUM 100 MG CAPSULE PO SCH ×2 (09:58→20:54)
[2020-12-10] MEDS: DUTASTERIDE 0.5 MG CAPSULE PO SCH (09:58)
[2020-12-10] MEDS: METOPROLOL TARTRATE 100 MG TABLET PO SCH ×2 (09:58→20:54)
[2020-12-10] MEDS: ASPIRIN CHEW 81 MG TABLET PO SCH (09:58)
[2020-12-10] MEDS: LINACLOTIDE 145 MCG CAPSULE PO SCH (09:58)
[2020-12-10] MEDS: POLYETHYLENE GLYCOL POWDER 17 GM PACK PO SCH ×2 (11:04→20:55)
[2020-12-10] MEDS ORDERED: amLODIPine 5 MG TABLET PO ONE (11:30)
[2020-12-10] MEDS ORDERED: FUROSEMIDE 40 MG/4 ML VIAL IV ONE (12:13)
[2020-12-10] MEDS: CEFEPIME 1,000 MG in SODIUM CHLORIDE 0.9% 100 ML IV SCH ×2 (13:54→23:36)
[2020-12-10] MEDS: ATORVASTATIN 40 MG TABLET PO SCH (20:54)
[2020-12-10] MEDS: SENNA 8.6 MG TABLET PO SCH (20:55)
[2020-12-11 05:00] LABS: Basophils % 0.3 % (0.0-0.8); Eosinophils # 0.4 10*3/uL (0.0-0.87); Eosinophils % 3.3 % (0.00-10.9); Hemoglobin 8.7 GM/DL (14.0-18.0); Immature Granulocytes % 0.7 %; Immature Granulocytes Absolute 0.08 #; Lymphocytes # 1.3 10*3/uL (1.4-4.0); Lymphocytes % 12.1 % (21.2-54.2); Mean Corpuscular HGB Conc 32.2 GM/DL (32-36); Mean Corpuscular Volume 99.6 FL (87-102); Mean Platelet Volume 10.8 FL (9.6-12.0); Monocytes % 11.7 % (1.7-12.7); NRBC # 0.04 10*3/uL; Neutrophils % 71.9 % (38.7-73.9); Platelet Count 216 T/CUMM (130-400); Red Blood Count 2.71 MC/CUMM (3.8-5.5); Red Cell Distribution Width 14.8 % (9.3-17.3); White Blood Count 11.1 T/CUMM (4-12)
[2020-12-11 05:11] LABS: % Iron Saturation 15.2 % (18-50); Ferritin 447.9 ng/ml (26-388)
[2020-12-11 05:14] LABS: Folate 14.49 NG/ML (5.38-24.0); Vitamin B12 1656 PG/ML (211-911)
[2020-12-11 06:01] LABS: Sedimentation Rate-Westergren 80 MM/HR (0-20)
[2020-12-11] MEDS ORDERED: FUROSEMIDE 40 MG/4 ML VIAL IV SCH (09:00)
[2020-12-11] MEDS: METOPROLOL TARTRATE 100 MG TABLET PO SCH ×2 (09:39→21:13)
[2020-12-11] MEDS: CHOLECALCIFEROL 1,000 UNIT TABLET PO SCH (09:39)
[2020-12-11] MEDS: DUTASTERIDE 0.5 MG CAPSULE PO SCH (09:39)
[2020-12-11] MEDS: DOCUSATE SODIUM 100 MG CAPSULE PO SCH ×2 (09:39→21:13)
[2020-12-11] MEDS: ASPIRIN CHEW 81 MG TABLET PO SCH (09:39)
[2020-12-11] MEDS: TAMSULOSIN 0.4 MG CAPSULE PO SCH ×2 (09:40→21:13)
[2020-12-11] MEDS: FLUTICASONE 50 MCG NASAL SPRAY 16 GM BOTTLE BOTH NARES SCH (09:40)
[2020-12-11] MEDS: amLODIPine 5 MG TABLET PO SCH (09:40)
[2020-12-11] MEDS: LINACLOTIDE 145 MCG CAPSULE PO SCH (09:40)
[2020-12-11 10:26] LABS: Hemoglobin A1 (Alkaline) 97.4 % (96.5-98.5); Hemoglobin A2 (Alkaline) 2.6 % (1.5-3.5)
[2020-12-11] MEDS: POLYETHYLENE GLYCOL POWDER 17 GM PACK PO SCH ×2 (11:38→21:48)
[2020-12-11] MEDS: CEFEPIME 1,000 MG in SODIUM CHLORIDE 0.9% 100 ML IV SCH (12:06)
[2020-12-11] MEDS: AMIODARONE 200 MG TABLET PO SCH ×2 (12:06→21:14)
[2020-12-11] MEDS: hydrALAZINE 10 MG TABLET PO SCH ×2 (14:48→21:12)
[2020-12-11] MEDS ORDERED: LORazepam 1 MG TABLET PO ONE (18:32)
[2020-12-11] MEDS: ATORVASTATIN 40 MG TABLET PO SCH (21:13)
[2020-12-11] MEDS: SENNA 8.6 MG TABLET PO SCH (21:48)
[2020-12-12] MEDS: CEFEPIME 1,000 MG in SODIUM CHLORIDE 0.9% 100 ML IV SCH (00:14)
[2020-12-12] MEDS ORDERED: FUROSEMIDE 40 MG TABLET PO SCH (09:00)
[2020-12-12 09:18] VITALS: BP 147/67
[2020-12-12] MEDS: LINACLOTIDE 145 MCG CAPSULE PO SCH (09:18)
[2020-12-12] MEDS: TAMSULOSIN 0.4 MG CAPSULE PO SCH (09:19)
[2020-12-12] MEDS: hydrALAZINE 10 MG TABLET PO SCH (09:19)
[2020-12-12] MEDS: DOCUSATE SODIUM 100 MG CAPSULE PO SCH ×2 (09:19→09:40)
[2020-12-12] MEDS: AMIODARONE 200 MG TABLET PO SCH (09:19)
[2020-12-12] MEDS: ASPIRIN CHEW 81 MG TABLET PO SCH (09:19)
[2020-12-12] MEDS: METOPROLOL TARTRATE 100 MG TABLET PO SCH (09:19)
[2020-12-12] MEDS: CHOLECALCIFEROL 1,000 UNIT TABLET PO SCH (09:20)
[2020-12-12] MEDS: DUTASTERIDE 0.5 MG CAPSULE PO SCH (09:20)
[2020-12-12] MEDS: FLUTICASONE 50 MCG NASAL SPRAY 16 GM BOTTLE BOTH NARES SCH (09:20)
[2020-12-12] MEDS: amLODIPine 5 MG TABLET PO SCH (09:21)
[2020-12-12] MEDS: POLYETHYLENE GLYCOL POWDER 17 GM PACK PO SCH (09:39)
[2020-12-12] MEDS ORDERED: CEFUROXIME 500 MG TABLET PO SCH (21:00)
== END 2020-12-12 11:48 | disposition home or self-care (01) | DRG 917 ==
LOC: N.EDINP 07:01 → N.ED 07:01 → SUATTDRO 10:13 → N.EDINP 13:10 → N.5E 13:25 → N.3E 12-06 09:45 → SUATTDRO 12-06 14:16
PROVIDERS: ADMIT Internal Medicine; ATTEND Hospitalist